=== PATIENT | female | born 1975 | race African-American/Black ===

== ENCOUNTER 2023-11-25 10:51 | Emergency (ER) | payer OTHER ==
[~2023-11-25] VITALS: Ht 160 cm; Wt 73.9 kg
[2023-11-25 11:09] VITALS: BP 105/65; PULSE 70; RESP 18; TEMP 98.5; O2SAT 99
[2023-11-25] MEDS: KETOROLAC 30 MG/ML VIAL IM ONE (11:44)
[2023-11-25] MEDS ORDERED: METH-1867 PO (12:35)
[2023-11-25] MEDS ORDERED: LID5T TP (12:35)
[2023-11-25 12:41] VITALS: BP 105/65; PULSE 70; RESP 18; TEMP 98.5; O2SAT 99
== END 2023-11-25 12:42 | disposition home or self-care (01) ==
LOC: MED 10:51
DX: M43.6 Torticollis (principal); Z86.718 Personal history of other venous thrombosis and embolism; Z79.899 Other long term (current) drug therapy
CPT/HCPCS: 20553; 96372; 99284; J1885

== ENCOUNTER 2024-03-02 21:42 | Emergency (ER) | payer OTHER ==
[~2024-03-02] VITALS: Ht 162.6 cm; Wt 76.2 kg
[~2024-03-02 21:42] MED LIST: LID5T TP; METH-1867 PO
[2024-03-02 22:01] VITALS: BP 114/78; PULSE 68; RESP 14; TEMP 97.7; O2SAT 99
[2024-03-02] MEDS ORDERED: NAPR-337 PO (22:56)
[2024-03-02 23:09] VITALS: BP 114/78; PULSE 68; RESP 14; TEMP 97.7; O2SAT 99
== END 2024-03-02 23:09 | disposition home or self-care (01) ==
LOC: MED 21:42
DX: S20.212A Contusion of left front wall of thorax, initial encounter (principal); Z79.899 Other long term (current) drug therapy; V49.49XA Driver injured in collision with other motor vehicles in traffic accident, initial encounter; Y93.89 Activity, other specified; Y92.89 Other specified places as the place of occurrence of the external cause; Y99.8 Other external cause status
CPT/HCPCS: 71045; 99283